=== PATIENT | male | born 1985 | race Caucasian/White ===

== ENCOUNTER 2019-08-02 20:03 | Emergency (ER) | payer SELFPAY ==
[2019-08-02] MEDS ORDERED: solu-MEDROL 125 MG IM ONE (20:23)
[2019-08-02] MEDS ORDERED: DUONEB 0.5-3 MG/3 ml Neb IH ONE (20:24)
[2019-08-02] MEDS ORDERED: solu-MEDROL 125 MG ONE (20:31)
[2019-08-02] MEDS ORDERED: VENTOLIN COMMON CANISTER IH ONE (20:36)
--- NOTE | 2019-08-02 20:59 | ERPHSYRPT ---
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 Patient states he has a paper mask on because they were out of respirator masks. Patient states he tried 02 at work but it didnt help with SOB so 911 was called. Triage Nursing Assessment: Patient arrived to ER per ambulance. Patient A/O times 4. Patient answers questions appropriatley. Patient arrived per EMT with 2L 02 per N/C. Patient respiratory easy non-labored upon arrival. 02 sat 100% with 02 at 2L. Cap refill < 3 seconds. Lungs diminished A/P throughout. Patient denies chest pain. Patient did state he was feeling better upon assessment. Patient shows no S/S of respiratory distress. 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 Patient reported he did not have a regular mask on and was having a paper mask. It was not getting better while standing outside work and called EMS. Patient is placed on 2 L oxygen and on presentation in the ER his shortness of breath tightness and wheezing is improved. Patient feels back to normal. Timing/Duration: today, sudden, improved Activities at Onset: activity Severity of Dyspnea-Max: moderate Severity of Dyspnea-Current: none Modifying Factors: Improves With: rest Associated Symptoms: anxiety, cough, wheezing, heaviness Allergies/Adverse Reactions: No Known Drug Allergies Allergy (Verified 03/30/14 10:20) Home Medications: Omeprazole 20 MG [Prilosec 20 mg] 20 mg PO DAILY 05/15/13 [History] Bupropion HCl Xl 150 mg [Wellbutrin XL 150 MG] 150 mg PO DAILY 08/02/19 [ History] Divalproex Sodium 500 mg PO BID 08/02/19 [History] Sertraline HCl 150 mg PO DAILY 08/02/19 [History] Trazodone HCl 100 mg PO HS 08/02/19 [History] clonazePAM [Clonazepam] 0.5 mg PO BID PRN 08/02/19 [History] hydrOXYzine HCL [Hydroxyzine HCl] 50 mg PO BID 08/02/19 [History] Hx Tetanus, Diphtheria Vaccination/Date Given: Yes Hx Influenza Vaccination/Date Given: No Hx Pneumococcal Vaccination/Date Given: No Immunizations Up to Date: Yes Travel Risk - International Travel Have you traveled outside of the country in past 3 weeks: No Have you or anyone close to you been diagnosed with or: No Do your reside in a community with a known COVID-19 case?: Yes If Yes where:: [facility] - Coronavirus Screening Has patient experienced Coronavirus symptoms: No - Review of Systems Constitutional: No Symptoms Eyes: No Symptoms Ears, Nose, & Throat: No Symptoms Respiratory: Cough, Wheezing Cardiac: No Symptoms Abdominal/Gastrointestinal: No Symptoms Musculoskeletal: No Symptoms Skin: No Symptoms Neurological: No Symptoms Psychological: No Symptoms Endocrine: No Symptoms Hematologic/Lymphatic: No Symptoms - Past Medical History Pertinent Past Medical History: Yes Neurological History: No Pertinent History ENT History: No Pertinent History Cardiac History: No Pertinent History Respiratory History: No Pertinent History Endocrine Medical History: No Pertinent History Musculoskeletal History: No Pertinent History GI Medical History: GERD History: No Pertinent History Psycho-Social History: Depression Male Reproductive Disorders: No Pertinent History - Past Surgical History Past Surgical History: Yes Neuro Surgical History: No Pertinent History Cardiac: No Pertinent History Respiratory: No Pertinent History Gastrointestinal: No Pertinent History Genitourinary: No Pertinent History Musculoskeletal: No Pertinent History Male Surgical History: No Pertinent History Other Surgical History: GLASS REMOVED FROM EYE - Social History Smoking Status: Current every day smoker How long have you smoked: 10 years Exposure to second hand smoke: Yes Drug Use: none Patient Lives Alone: No - Nursing Vital Signs Nursing Vital Signs: Initial Vital Signs Temperature 97.7 F 08/02/19 20:06 Pulse Rate 72 08/02/19 20:06 Respiratory Rate 22 08/02/19 20:06 Blood Pressure 107/64 08/02/19 20:06 O2 Sat by Pulse Oximetry 100 08/02/19 20:06 Pain Scale Pain Intensity 3 - Physical Exam General Appearance: no apparent distress, alert, anxiety Eye Exam: PERRL/EOMI, eyes nml inspection Ears, Nose, Throat Exam: hearing grossly normal, normal ENT inspection, normal pharynx Neck Exam: normal inspection, non-tender, supple, full range of motion Respiratory Exam: diminished breath sounds (Especially at the bases mild) Cardiovascular/Chest Exam: normal heart sounds, regular rate/rhythm Extremity Exam: non-tender Neurologic Exam: alert, oriented x 3, cooperative Skin Exam: normal color SpO2 Interpretation: normal SpO2: 100 O2 Delivery: Room Air - Course Nursing assessment & vital signs reviewed: Yes Ordered Tests: Active Orders 24 hr Category Date Time Status CHEST 1 VIEW (PORTABLE) Stat Exams 08/02/19 20:24 Taken Respiratory MDI STAT RT 08/02/19 20:36 Completed Respiratory Therapy Assessment DAILY RT 08/02/19 20:36 Completed Medication Summary Discontinued Medications Generic Name Dose Route Start Last Admin Trade Name Freq PRN Reason Stop Dose Admin Albuterol Sulfate 2 puff 08/02/19 20:36 08/02/19 20:38 Ventolin Common Canister IH 08/02/19 20:37 2 puff ONCE ONE Administration Albuterol/Ipratropium 3 ml 08/02/19 20:24 Duoneb 0.5-3 Mg/3 Ml Neb IH 08/02/19 20:25 STAT ONE Methylprednisolone Sodium Succinate 125 mg 08/02/19 20:23 08/02/19 20:44 Solu-Medrol 125 Mg IM 08/02/19 20:24 125 mg STAT ONE Administration Methylprednisolone Sodium Succinate Confirm 08/02/19 20:31 Solu-Medrol 125 Mg Administered 08/02/19 20:32 Dose 125 mg .ROUTE .STK-MED ONE - Progress Progress: improved, re-examined Air Movement: good Progress Note: 08/02/19 21:45 He is given inhaler and steroid while in the ER, on reevaluation patient is feeling much better. Did not have any shortness of breath throughout stay in the ER. I believe patient has allergic pneumonitis. I would continue with steroids and inhaler to go home. X-ray did not show any pneumonic infiltrate. Discussed signs symptoms of worsening needing return to ER which he seems understanding. Stable for discharge. Blood Culture(s) Obtained: No Antibiotics given: No - Departure Departure Disposition: Home Clinical Impression: Allergic pneumonitis Condition: Stable Critical Care Time: No Referrals: OFELIA LAGUNAS [Family Provider] - Follow Up with PCP/3 days Instructions: Asthma, Adult (DC), Shortness of Breath (Dyspnea) (DC) Additional Instructions: Use inhaler as needed. To use mask all the time while at work. Follow-up with your primary care for reevaluation. Return to ER for any worsening. Prescriptions: Albuterol 8 gm Mdi Hfa [Ventolin Hfa MDI] 8 gm IH Q4H #1 hfa.[email or web address].[email or web address] predniSONE [Prednisone] 50 mg PO DAILY #5 tablet
[2019-08-02 21:09] VITALS: O2SAT 100
[2019-08-02 21:47] VITALS: BP 108/86; PULSE 73
--- NOTE | 2019-08-03 08:24 | XRAY ---
Indication: Cough and wheezing. Comparison: May 15, 2013. Portable chest again demonstrates normal heart and lungs with incidental right base calcified granuloma. Bony thorax intact. No new/acute findings.
== END 2019-08-02 21:55 | disposition home or self-care (01) ==
LOC: ED 20:03
DX: J67.9 Hypersensitivity pneumonitis due to unspecified organic dust (principal); Z72.0 Tobacco use
CPT/HCPCS: 71045; 94640; 96372; 99284; J2930